=== PATIENT | male | born 1960 | race Caucasian/White ===

== ENCOUNTER 2017-06-06 02:51 | Day surgery (SDC) | payer BC ==
[2017-06-06] MEDS ORDERED: Ketorolac INJ* 30 MG/ML 1 ML VIAL IV ONE (03:04)
[2017-06-06] MEDS ORDERED: Ondansetron INJ* 2 MG/ML VIAL IV ONE (03:04)
[2017-06-06] MEDS ORDERED: Morphine INJ* 4 MG/ML 1 ML SYRINGE IV ONE ×2 (03:04→09:11)
[2017-06-06] MEDS ORDERED: NS 0.9% 1000 ML* 1,000 ML IV ONE (03:04)
[2017-06-06 03:35] LABS: Hematocrit 46 % (42-52); Hemoglobin 15.5 g/dl (14.0-18.0); Mean Corpuscular HGB Conc 34 g/dl (31-36); Mean Corpuscular Hemoglobin 29 pg (27-31); Mean Corpuscular Volume 85 fL (80-94); Mean Platelet Volume 9 um3 (7.4-10.4); Red Blood Count 5.44 10^6/ul (4.0-5.4); Red Cell Distribution Width 14 % (10.5-15)
[2017-06-06 03:44] LABS: Albumin 4.2 g/dL (3.2-5.2); Calcium 8.9 mg/dL (8.6-10.3); EGFR African American 100.1 (>60); EGFR Non-African American 77.9 (>60); Globulin 2.6 g/dL (2-4); Potassium 3.6 mmol/L (3.5-5.0); Total Bilirubin 0.9 mg/dL (0.2-1.0); Total Protein 6.8 g/dL (6.4-8.9)
[2017-06-06 04:36] LABS: Urine Bacteria Absent (Absent); Urine Bilirubin Negative (Negative); Urine Glucose Negative (Negative); Urine Nitrite Negative (Negative)
--- NOTE | 2017-06-06 06:55 | ED ---
Radames Horne Alfonso, scribed for Jose Christian on 06/06/17 at 0308 . Abdominal Pain/Male - HPI Summary HPI Summary: This patient is a 56 year old M presenting to [facility] accompanied by with a chief complaint of left flank pain since two days ago. The pain was intermittent and worse as of one hour. The pain radiates to his back. The patient rates the pain 8/10 in severity. Symptoms aggravated by nothing and alleviated by Percocet COLLATERAL CLERK. Patient denies fever, hematuria, testicular pain, testicular swelling, and rash. PMHx of HLD and kidney stones. - History of Current Complaint Chief Complaint: EDFlankPain Stated Complaint: LEFT FLANK PAIN Time Seen by Provider: 06/06/17 03:00 Hx Obtained From: Patient Onset/Duration: Sudden Onset, Lasting Days - 2, Worse Since - 1 hour Timing: Intermittent Severity Initially: Moderate Severity Currently: Moderate Pain Intensity: 8 Pain Scale Used: 0-10 Numeric Location: Flank - L Radiates: Yes Radiates to: Back Aggravating Factor(s): Nothing Alleviating Factor(s): Medications - Percocet Associated Signs And Symptoms: Positive: Negative - Allergies/Home Medications Allergies/Adverse Reactions: Allergies Allergy/AdvReac Type Severity Reaction Status Date / Time No Known Allergies Allergy Verified 06/06/17 02:57 PMH/Surg Hx/FS Hx/Imm Hx Cardiovascular History: Reports: Hx Hypercholesterolemia History: Reports: Hx Kidney Stones, Hx Renal Disease - KIDNEY STONES - Surgical History Surgery Procedure, Year, and Place: kidney stones x 3 stents - Immunization History Date of Tetanus Vaccine: unknown Infectious Disease History: No Infectious Disease History: Denies: Traveled Outside the [place] in Last 30 Days - Family History Known Family History: Positive: Diabetes - father - Social History Alcohol Use: Occasionally Hx Substance Use: No Substance Use Type: Reports: None Hx Tobacco Use: Yes Smoking Status (MU): Former Smoker Review of Systems Negative: Fever Positive: Abdominal Pain - Left flank pain. Positive: other - negative testicular pain, and testicular swelling. Negative: hematuria Negative: Rash All Other Systems Reviewed And Are Negative: Yes Physical Exam Triage Information Reviewed: Yes Vital Signs On Initial Exam: Initial Vitals Temp Pulse Resp BP Pulse Ox 97.5 F 76 18 145/109 96 06/06/17 02:53 06/06/17 02:53 06/06/17 02:53 06/06/17 02:53 06/06/17 02:53 Vital Signs Reviewed: Yes Appearance: Positive: Well-Appearing, No Pain Distress Skin: Positive: Warm, Skin Color Reflects Adequate Perfusion, Dry Head/Face: Positive: Normal Head/Face Inspection Eyes: Positive: EOMI, HAO ENT: Positive: Normal ENT inspection Neck: Positive: Supple, Nontender Respiratory/Lung Sounds: Positive: Clear to Auscultation, Breath Sounds Present Cardiovascular: Positive: RRR, Pulses are Symmetrical in both Upper and Lower Extremities Abdomen Description: Positive: Soft, Other: - LLQ tenderness Bowel Sounds: Positive: Present Musculoskeletal: Positive: Normal, Strength/ROM Intact Neurological: Positive: Normal, Sensory/Motor Intact, Alert, Oriented to Person Place, Time Diagnostics - Vital Signs Vital Signs Temp Pulse Resp BP Pulse Ox 06/06/17 02:55 97.5 F 76 18 145/109 96 06/06/17 02:53 97.5 F 76 18 145/109 96 - Laboratory Result Diagrams: 06/06/17 03:15 06/06/17 03:15 Lab Statement: Any lab studies that have been ordered have been reviewed, and results considered in the medical decision making process. - CT A/P CT Interpretation Completed By: Radiologist - Hydronephrosis with stone (2 x 1 x 0.6 cm) in the left renal pelvis Abdominal Pain Fem Course/Dx - Course Assessment/Plan: This patient is a 56 year old M presenting to [facility] accompanied by with a chief complaint of left flank pain since two days ago. The pain was intermittent and worse as of one hour. The pain radiates to his back. The patient rates the pain 8/10 in severity. Symptoms aggravated by nothing and alleviated by Percocet COLLATERAL CLERK. Patient denies fever, hematuria, testicular pain, testicular swelling, and rash. PMHx of HLD and kidney stones. CT A/P reveals hydronephrosis with stone in the left renal pelvis. Consulted Dr. Medina (urologist) who recommends an Ultrasound. Patient is signed out to Dr. Coley, pending disposition, awaiting US. - Diagnoses Provider Diagnoses: Renal calculi - Provider Notifications Discussed Care Of Patient With: Henok Medina Time Discussed With Above Provider: 04:16 Instructed by Provider To: Other - Consulted Dr. Medina (urologist) who recommends an US. Discharge - Discharge Plan Condition: Stable Disposition: OTHER Discharge Disposition Comment: Patient is signed out to Dr. Coley, pending disposition, awaiting US. Prescriptions: oxyCODONE/Acetamin 5/325 MG* [Percocet 5/325 TAB*] 1 tab PO Q8H PRN #15 tab MDD 3 PRN Reason: Pain The documentation as recorded by the Radames cook Alfonso accurately reflects the service I personally performed and the decisions made by , Jose Christian.
--- NOTE | 2017-06-06 07:54 | RAD ---
HISTORY: Kidney stone COMPARISONS: CT dated June 04, 2016 VIEWS: Frontal views of the abdomen. FINDINGS: BOWEL: There is a nonobstructive bowel gas pattern. There is a large amount of stool within the colon. CALCULI: The left renal calculi noted on the previous examination are not well-visualized on the current examination, though evaluation is limited by overlying bowel. BONES AND SOFT TISSUES: Degenerative changes are noted OTHER FINDINGS: The lung bases are clear. There is no subphrenic gas. IMPRESSION: THE NEPHROLITHIASIS NOTED ON CT IS NOT WELL VISUALIZED ON THE CURRENT EXAMINATION, THOUGH EVALUATION IS LIMITED BY OVERLYING BOWEL.
--- NOTE | 2017-06-06 08:08 | RAD ---
INDICATION: Left flank pain, renal colic. CT of the abdomen and pelvis was performed without oral or IV contrast administration. Coronal and sagittal reconstructed images were obtained. Lung bases demonstrate no pleural fluid, nodules or masses. Heart is of normal size without evidence of pericardial effusion. Liver is normal in size. It is diffusely decreased in density, consistent with hepatic steatosis. Areas of focal fatty sparing are likely present. The gallbladder demonstrates no calcified gallstones. No pericholecystic fluid or wall thickening is identified. Spleen is normal in size. The pancreas demonstrates no mass or pancreatic duct dilation. No adrenal lesions are noted. There is left hydronephrosis noted. There is a calculus in the left ureteropelvic junction measuring 16 mm. Other calcifications are noted in the lower pole of the left kidney. The right kidney demonstrates no hydronephrosis. Aorta and inferior vena cava are unremarkable. Small scattered retroperitoneal lymph nodes are noted. No dilated loops of bowel are noted. The colon is filled with stool. No hernias are noted. CT of the pelvis demonstrates urinary bladder to be grossly unremarkable. The prostate is prominent in size. The bladder is otherwise unremarkable. No hernias are noted. IMPRESSION: Left hydronephrosis. There is a large calculus in the left ureteropelvic junction. Perinephric infiltration of fat is noted surrounding the left kidney.
--- NOTE | 2017-06-06 08:54 | HP ---
CC: Dr. Kelley * STAT ADMITTING HISTORY AND PHYSICAL: DATE OF ADMISSION: 06/06/17 ADMITTING DIAGNOSES: 1. Left hydronephrosis. 2. Large calculus left renal pelvis. 3. Additional left renal calculi. PLANNED PROCEDURE: Left stent insertion (possibly to be followed in the near future by lithotripsy). SURGEON: Dr. Medina. HISTORY OF PRESENT ILLNESS: Aaron Beach is a 56-year-old gentleman with a history of recurrent renal calculi. He has had uric acid as well as calcium stones in the last several years - in 2004 he had uric acid stones, in 2009 he had calcium stones, in 2012 he had uric acid stones again. Most recently, his stone was composed of 80% uric acid and 20% calcium. He had now presented to the emergency room with left flank pain and nausea, and was noted to have a 2-cm calculus in the left renal pelvis with moderate left hydronephrosis and additional left renal calculi. I had prescribed medication in the form of Allopurinol and potassium citrate, but he stated that he had stopped taking those medications several months ago, which may explain the formation of the large calculus. PAST MEDICAL HISTORY: Significant for: 1. Recurrent renal calculi. 2. Gastroesophageal reflux. PAST SURGICAL HISTORY: MEDICATIONS ON ADMISSION: [id number] medication for heartburn. ALLERGIES: No known drug allergies. REVIEW OF SYSTEMS: He is otherwise in excellent health. There is no history of diabetes mellitus or any major systemic illness. He denies any chest pain or shortness of breath. PHYSICAL EXAMINATION GENERAL: Reveals a pleasant, healthy-appearing, middle-aged gentleman. VITAL SIGNS: Blood pressure is 130/80; pulse 84 per minute regular, oxygen saturation 86% on room air. LUNGS: Clear bilaterally. CARDIOVASCULAR: Regular rate and rhythm. S1, S2. ABDOMEN: Soft, with mild left flank tenderness. IMAGING STUDIES: I reviewed the CT scan which revealed a 2-cm calculus in the left renal pelvis with an additional left lower pole calculus and left hydronephrosis. I also reviewed the plain x-ray which did not reveal the large calculus, suggesting that this may be a uric acid calculus. IMPRESSION: I had a detailed discussion with Mr. Beach and the plan is to proceed with urgent left stent insertion followed by reinstitution of medication for alkalinizing the urine in an effort to dissolve the calculi, or possibly with lithotripsy depending on the post-operative x-ray findings. PLAN: Left stent insertion. [id number]/[facility] #: [id number] CORY
[2017-06-06] MEDS ORDERED: cefTRIAXone(*) 2 GM ADDV.VIAL IVPB ONE (09:01)
[2017-06-06] MEDS ORDERED: Iohexol 180 (CONTRAST) 10 ML SDV IV ONE (11:43)
[2017-06-06] MEDS ORDERED: Lidocaine 2% PF * 5 ML VIAL ONE (11:52)
[2017-06-06] MEDS ORDERED: fentaNYL* 50 MCG/ML 2 ML VIAL (100 MCG VIAL) ONE (11:52)
[2017-06-06] MEDS ORDERED: Propofol* 10 MG/ML 20 ML BTL IV PUSH ONE (11:52)
[2017-06-06] MEDS ORDERED: oxyCODONE/Acetamin 5/325 MG* TAB PO PRN ×2 (13:00→13:02)
--- NOTE | 2017-06-06 13:32 | RAD ---
INDICATION: Stent placement. COMPARISON: Correlation is made with a prior CT of the abdomen and pelvis obtained earlier today. TECHNIQUE: 9 seconds of intermittent fluoroscopic guidance were provided and 4 spot films of the abdomen were centered on the left side. FINDINGS: There is partial opacification of the left renal collecting system. Subsequently there is placement of a double-J ureteral stent catheter on the left side. IMPRESSION: INTRAOPERATIVE CONTROL FILMS. CPT II Codes: 6045F
[2017-06-06 13:33] VITALS: BP 130/91
--- NOTE | 2017-06-06 18:51 | ED ---
Bassem Horne Angela, scribed for Bipin Coley MD on 06/06/17 at 0806 . Progress - Progress Note Progress Note: This patient was signed out from Dr. Christian, pending disposition. Pt will be admitted by Dr. Medina for renal calculi. This patient is a 56 y/o male presenting to [facility] c/o left flank pain since two days ago. The pain radiates to his back. The patient rates the pain 8/10 in severity. Patient denies fever, hematuria, testicular pain, testicular swelling , and rash. PMHx of HLD and kidney stones. Course/Dx - Diagnoses Provider Diagnoses: Renal calculi - Provider Notifications Discussed Care Of Patient With: Henok Medina Time Discussed With Above Provider: 04:16 Instructed by Provider To: Other - Consulted Dr. Medina (urologist) who will admit the pt. The documentation as recorded by the Bassem cook Angela accurately reflects the service I personally performed and the decisions made by , Bipin Coley MD.
--- NOTE | 2017-06-07 02:55 | OP ---
DATE OF OPERATION: 06/06/17 - [facility] DATE OF : 64 SURGEON: Henok Medina MD ANESTHESIOLOGIST: Dr. Carballo. ANESTHESIA: General. PRE-OP DIAGNOSES: 1. Left hydronephrosis. 2. Large calculus, left renal pelvis. POST-OP DIAGNOSES: 1. Left hydronephrosis. 2. Large calculus, left renal pelvis. 3. Multiple small bladder calculi. OPERATIVE PROCEDURE: Cystoscopy, left retrograde pyelogram, left stent insertion, and removal of bladder calculi. COMPLICATIONS: None. STENT: A 6-Swedish stent, left ureter. INDICATIONS: Aaron Beach is a 56-year-old gentleman with a history of recurrent calculi who was evaluated for left flank pain secondary to a 2-cm calculus in the left renal pelvis. FINDINGS: 1. Mild to moderately enlarged prostate. 2. Multiple tiny bladder calculi. 3. Filling defect, left renal pelvis, consistent with radiolucent probable uric acid calculus. DESCRIPTION OF PROCEDURE: After induction of general anesthesia, the patient was placed in dorsal lithotomy position. Sequential compression devices were in place and functioning. Initial cystoscopy revealed a normal appearing urethra and mild to moderately enlarged prostate. The bladder was examined, there were multiple tiny bladder calculi noted. Using an Ellik evacuator, these were flushed out and removed. Next, a left retrograde pyelogram was carried out. A large filling defect was noted in the left renal pelvis consistent with uric acid calculus. A 6-Swedish stent was introduced and positioned under fluoroscopy with good proximal and distal positioning obtained. The bladder was emptied. The patient tolerated the procedure satisfactorily and was transferred back to the recovery area in stable condition. [id number]/[facility] #: [id number] MTDD
== END 2017-06-06 14:47 | disposition home or self-care (01) ==
LOC: ED 02:51 → OR 09:11
PROVIDERS: ATTEND Urology
DX: N13.2 Hydronephrosis with renal and ureteral calculous obstruction (principal); N21.0 Calculus in bladder; R10.32 Left lower quadrant pain; K21.9 Gastro-esophageal reflux disease without esophagitis
CPT/HCPCS: 36415; 74000; 74176; 74420; 80053; 81003; 81015; 83690; 84484; 85025; 85610; 85730; 96374; 96375; 99284; C1876; J0696; J1580; J1885; J2270; J2405; J2704; J3010

== ENCOUNTER 2017-08-03 13:57 | Emergency (ER) | payer BC ==
[2017-08-03 14:28] LABS: Hematocrit 50 % (42-52); Hemoglobin 17.1 g/dl (14.0-18.0); Mean Corpuscular HGB Conc 34 g/dl (31-36); Mean Corpuscular Hemoglobin 29 pg (27-31); Mean Corpuscular Volume 85 fL (80-94); Mean Platelet Volume 9 um3 (7.4-10.4); Red Blood Count 5.93 10^6/ul (4.0-5.4); Red Cell Distribution Width 14 % (10.5-15); White Blood Count 6.7 10^3/ul (3.5-10.8)
[2017-08-03 14:43] LABS: Albumin 4.7 g/dL (3.2-5.2); BUN/Creatinine Ratio 16.7 (8-20); Calcium 9.8 mg/dL (8.6-10.3); EGFR African American 113.1 (>60); EGFR Non-African American 87.9 (>60); Globulin 2.7 g/dL (2-4); Potassium 3.7 mmol/L (3.5-5.0); Total Bilirubin 1.3 mg/dL (0.2-1.0); Total Protein 7.4 g/dL (6.4-8.9)
--- NOTE | 2017-08-03 14:45 | RAD ---
INDICATION: Chest pain. COMPARISON: Comparison is made with a prior chest x-ray study from January 15, 2012. TECHNIQUE: Dual-energy PA and lateral views of the chest were obtained. FINDINGS: The heart is within normal limits in size. Mediastinal and hilar contours appear within normal limits. The lungs are clear. No pleural effusion or pneumothorax is seen. IMPRESSION: NO EVIDENCE FOR ACTIVE CARDIOPULMONARY DISEASE.
[2017-08-03] MEDS ORDERED: Ketorolac INJ* 30 MG/ML 1 ML VIAL IV PUSH ONE (14:55)
[2017-08-03] MEDS ORDERED: Dexamethasone IV* 4 MG/ML 1 ML (4 MG) IM ONE (14:56)
[2017-08-03 15:39] LABS: TSH (Thyroid Stimulating Horm) 1.2 mcIU/mL (0.34-5.60)
--- NOTE | 2017-08-03 16:03 | RAD ---
INDICATION: Left shoulder pain. TECHNIQUE: 4 views of the left shoulder were obtained. FINDINGS: The bones are in normal alignment. No fracture is seen. There is a large calcific deposit adjacent to the superior lateral aspect of the humeral head consistent with calcific tendinitis or bursitis. IMPRESSION: FINDINGS MOST CONSISTENT WITH CALCIFIC TENDINITIS OR BURSITIS.
--- NOTE | 2017-08-03 17:05 | ED ---
Miriam Horne Emily, scribed for Bipin Coley MD on 08/03/17 at 1416 . HPI Chest Pain - HPI Summary HPI Summary: This patient is a 56 year old M presenting to [facility] with a chief complaint of left sided left shoulder pain that radiates to the chest that began 2 weeks ago. The patient rates the pain 6/10 in severity. Symptoms aggravated by movement of LUE. Symptoms alleviated by nothing. Patient reports pain in L elbow. Patient denies nausea, vomiting, and dyspnea. Patient denies having similar shoulder pain previously. - History of Current Complaint Chief Complaint: EDChestPainROMI Time Seen by Provider: 08/03/17 14:07 Hx Obtained From: Patient Onset/Duration: Started Weeks Ago, Still Present Timing: Constant Initial Severity: Moderate Current Severity: Moderate Pain Intensity: 8 Pain Scale Used: 0-10 Numeric Aggravating Factor(s): Movement Alleviating Factor(s): Nothing Associated Signs and Symptoms: Positive: Chest Pain, Other: - Negative nausea, vomiting, and dyspnea - Allergy/Home Medications Allergies/Adverse Reactions: Allergies Allergy/AdvReac Type Severity Reaction Status Date / Time No Known Allergies Allergy Verified 06/06/17 02:57 PMH/Surg Hx/FS Hx/Imm Hx Previously Healthy: No Cardiovascular History: Reports: Hx Hypercholesterolemia History: Reports: Hx Kidney Stones - URIC ACID STONES, Hx Renal Disease - KIDNEY STONES - Surgical History Surgery Procedure, Year, and Place: kidney stones x 3 stents - Immunization History Date of Tetanus Vaccine: unknown Infectious Disease History: No Infectious Disease History: Denies: Traveled Outside the [place] in Last 30 Days - Family History Known Family History: Positive: Diabetes - father - Social History Occupation: Employed Full-time Lives: With Family Alcohol Use: Rare Hx Substance Use: No Substance Use Type: Reports: None Hx Tobacco Use: Yes Smoking Status (MU): Former Smoker Review of Systems Positive: Chest Pain Positive: Other - Negative dyspnea Negative: Vomiting, Nausea Positive: Other - Positive L shoulder pain and L elbow pain All Other Systems Reviewed And Are Negative: Yes Physical Exam - Summary Physical Exam Summary: VITAL SIGNS: Reviewed. GENERAL: ~Patient is a well-developed and nourished male who is lying comfortable in the stretcher. ~Patient is not in any acute respiratory distress. HEAD AND FACE: No signs of trauma. ~No ecchymosis, hematomas or skull depressions. No sinus tenderness. EYES: PERRLA, EOMI x 2, No injected conjunctiva, no nystagmus. EARS: Hearing grossly intact. Ear canals and tympanic membranes are within normal limits. MOUTH: Oropharynx within normal limits. NECK: Supple, trachea is midline, no adenopathy, no JVD, no carotid bruit, no c- spine tenderness, neck with full ROM. CHEST: Symmetric, no tenderness at palpation LUNGS: Clear to auscultation bilaterally. No wheezing or crackles. CVS: Regular rate and rhythm, S1 and S2 present, no murmurs or gallops appreciated. ABDOMEN: Soft, non-tender. No signs of distention. No rebound no guarding, and no masses palpated. Bowel sounds are normal. EXTREMITIES: FROM in all major joints, no edema, no cyanosis or clubbing. Decreased range of motion in abduction in L shoulder secondary to pain. Good pulses and capillary refill in L arm. Pain radiates up L arm. NEURO: Alert and oriented x 3. No acute neurological deficits. Speech is normal and follows commands. SKIN: Dry and warm Triage Information Reviewed: Yes Vital Signs On Initial Exam: Initial Vitals Temp Pulse Resp BP Pulse Ox 98.0 F 94 18 167/110 96 08/03/17 13:59 08/03/17 13:59 08/03/17 13:59 08/03/17 13:59 08/03/17 13:59 Vital Signs Reviewed: Yes - Seth Coma Scale Coma Scale Total: 15 Diagnostics - Vital Signs Vital Signs Temp Pulse Resp BP Pulse Ox 08/03/17 13:59 98.0 F 94 18 167/110 96 - Laboratory Lab Results: Lab Results 08/03/17 08/03/17 08/03/17 Range/Units 14:20 14:20 14:20 WBC 6.7 (3.5-10.8) 10^3/ul RBC 5.93 H (4.0-5.4) 10^6/ul Hgb 17.1 (14.0-18.0) g/dl Hct 50 (42-52) % MCV 85 (80-94) fL MCH 29 (27-31) pg MCHC 34 (31-36) g/dl RDW 14 (10.5-15) % Plt Count 223 (150-450) 10^3/ul MPV 9 (7.4-10.4) um3 Neut % (Auto) 54.3 (38-83) % Lymph % (Auto) 34.8 (25-47) % Burke % (Auto) 7.8 (1-9) % Eos % (Auto) 2.2 (0-6) % Baso % (Auto) 0.9 (0-2) % Absolute Neuts (auto) 3.7 (1.5-7.7) 10^3/ul Absolute Lymphs (auto) 2.3 (1.0-4.8) 10^3/ul Absolute Monos (auto) 0.5 (0-0.8) 10^3/ul Absolute Eos (auto) 0.1 (0-0.6) 10^3/ul Absolute Basos (auto) 0.1 (0-0.2) 10^3/ul Absolute Nucleated RBC 0.01 10^3/ul Nucleated RBC % 0.1 D-Dimer, Quantitative < 200 (Less Than 230) ng/mL Sodium 137 (133-145) mmol/L Potassium 3.7 (3.5-5.0) mmol/L Chloride 105 (101-111) mmol/L Carbon Dioxide 25 (22-32) mmol/L Anion Gap 7 (2-11) mmol/L BUN 15 (6-24) mg/dL Creatinine 0.90 (0.67-1.17) mg/dL Est GFR ( Amer) 113.1 (>60) Est GFR (Non-Af Amer) 87.9 (>60) BUN/Creatinine Ratio 16.7 (8-20) Glucose 128 H (70-100) mg/dL Calcium 9.8 (8.6-10.3) mg/dL Magnesium 2.0 (1.9-2.7) mg/dL Total Bilirubin 1.30 H (0.2-1.0) mg/dL AST 18 (13-39) U/L ALT 29 (7-52) U/L Alkaline Phosphatase 48 (34-104) U/L Total Creatine Kinase 55 (10-223) U/L CK-MB (CK-2) 1.1 (0.6-6.3) ng/mL Troponin I 0.00 (<0.04) ng/mL Total Protein 7.4 (6.4-8.9) g/dL Albumin 4.7 (3.2-5.2) g/dL Globulin 2.7 (2-4) g/dL Albumin/Globulin Ratio 1.7 (1-3) TSH 1.20 (0.34-5.60) mcIU/mL Result Diagrams: 08/03/17 14:20 08/03/17 14:20 Lab Statement: Any lab studies that have been ordered have been reviewed, and results considered in the medical decision making process. - Radiology CXR Radiology Interpretation Completed By: Radiologist - CXR reveals NO EVIDENCE FOR ACTIVE CARDIOPULMONARY DISEASE. ED physician has reviewed this radiology report and agrees. Shoulder Radiology Interpretation Completed By: Radiologist - Shoulder XR read by radiologist reveals findings most consistent with calcific tendinitis or bursitis. ED physician has reviewed this radiology report and agrees. - EKG 1405 Cardiac Rate: NL - 95 BPM EKG Rhythm: Sinus Rhythm EKG Interpretation: No ST elevation. T waves in 2, 3, and AVF Chest Pain Course/Dx - Course Assessment/Plan: This patient is a 56 year old M presenting to [facility] with a chief complaint of left sided left shoulder pain that radiates to the chest that began 2 weeks ago. The patient rates the pain 6/10 in severity. Symptoms aggravated by movement of LUE. Symptoms alleviated by nothing. Patient reports pain in L elbow. Patient denies nausea, vomiting, and dyspnea. Patient denies having similar shoulder pain previously. In the ED course an IV access was obtained. Patient was placed in a forensic structural engineer. Patient was started with IV fluids. He was given Toradol and decadron for the shoulder pain since I believe he has a rotator cuff injury vs bursitis. Labs without any significant abnormality except for. Troponin #1: 0.00. EKG shows a NSR w/o ST elevations. CXR impression IMPRESSION: NO EVIDENCE FOR ACTIVE CARDIOPULMONARY DISEASE. Left shoulder pain IMPRESSION: FINDINGS MOST CONSISTENT WITH CALCIFIC TENDINITIS OR BURSITIS. After medications patients symptoms have improved. I have low suspicion for ACS since patients symptoms have improved. I discussed all the findings and test results with the patient. Patient was instructed to return to the emergency room immediately if any of the symptoms return or worsens. Plan of care was discussed with the patient and understands and agrees. All questions were answered at patient satisfaction. There were no further complaints or concerns. Lung exam before discharge: CTA B/L. Good air exchange. No wheezing or crackles heard. CVS: S1 and S2 present. No murmurs appreciated. Patient is alert and oriented x 3. Patient is hemodynamically stable. Patient will be discharged home with follow up PCP in the next 2-3 days - Chest Pain Differential Diagnosis/HQI/PQRI: Acute VA, ACS, Angina, CHF, Chest Wall, GI Disease, Lower Respiratory Infection, Other: - Shoulder pain, bursitis - Diagnoses Provider Diagnoses: Bursitis, Calcific tendonitis of left shoulder Discharge - Discharge Plan Condition: Stable Disposition: HOME Prescriptions: Methylprednisolone [Medrol Dosepak 4 MG*] 0 mg PO .SEE MACK INSTRUCTION #1 mack Naproxen TAB* [Naprosyn 250 mg TAB*] 500 mg PO Q8H PRN #30 tab PRN Reason: Pain Patient Education Materials: Methylprednisolone (By mouth), Naproxen (By mouth) , Tendinitis (ED), Shoulder Bursitis (ED) Referrals: [facility] [Provider Group] Additional Instructions: RETURN TO THE EMERGENCY DEPARTMENT FOR CHANGING OR WORSENING SYMPTOMS. The documentation as recorded by the Miriam cook Emily accurately reflects the service I personally performed and the decisions made by , Bipin Coley MD.
[2017-08-03 17:27] VITALS: BP 149/96
== END 2017-08-03 17:27 | disposition home or self-care (01) ==
LOC: ED 13:57
DX: M75.52 Bursitis of left shoulder (principal); M75.32 Calcific tendinitis of left shoulder; E78.00 Pure hypercholesterolemia, unspecified; Z87.442 Personal history of urinary calculi; Z87.891 Personal history of nicotine dependence
CPT/HCPCS: 36415; 71020; 80053; 82550; 82553; 83735; 84443; 84484; 85025; 85379; 93005; 96372; 96374; 99283; J1100; J1885

== ENCOUNTER → 2018-06-29 | Day surgery (SDC) | payer BC ==
--- NOTE | 2018-06-26 09:15 | HP ---
CC: Dr. Kelley; Henok Medina MD * ADMITTING HISTORY AND PHYSICAL: DATE OF ADMISSION: 06/29/18 ADMITTING DIAGNOSIS: Left renal calculi. PLANNED PROCEDURE: Shockwave lithotripsy of left renal calculi. HISTORY OF PRESENT ILLNESS: Rolando Beach is a 57-year-old gentleman with a history of recurrent multiple calculi. He has had both uric acid as well as calcium stones and recently was noted to have multiple left renal calculi and is now being brought in for treatment of the same. PAST MEDICAL HISTORY: Significant for: 1. Recurrent renal calculi. 2. Hypertension. MEDICATIONS: On admission: 1. Potassium citrate 20 mEq 3 times a day. 2. Allopurinol 300 mg once a day. 3. Lisinopril 10 mg a day. ALLERGIES: No known drug allergies. REVIEW OF SYSTEMS: He is otherwise in excellent health. There is no history of diabetes mellitus or any other major systemic illness. PHYSICAL EXAMINATION GENERAL: Reveals a pleasant middle-aged gentleman. VITAL SIGNS: Blood pressure is 126/70, pulse 82 per minute, oxygen saturation 98% on room air. LUNGS: Clear bilaterally. CARDIOVASCULAR: Regular rate and rhythm. S1, S2. ABDOMEN: Soft with mild left flank tenderness. IMPRESSION: A 57-year-old gentleman with multiple left renal calculi. PLAN: Planned procedure is shockwave lithotripsy of left renal calculi. I have discussed the procedure and possible risks including bleeding, infection, incomplete fragmentation, and obstructing fragments in detail with Rolando. [id number]/[facility] #: [id number] MTDD
[~2018-06-29] MED LIST: Buffered Lidocaine 0.9% SYRIN* 5 ML/SYR SYRINGE INTRADERM ONE; Dexamethasone IV* 4 MG/ML 1 ML (4 MG) ONE; Famotidine IV* 10 MG/ML 2 ML (20 mg) IV ONE; Famotidine IV* 10 MG/ML 2 ML (20 mg) ONE; Furosemide IV* 10 MG/ML 2 ML VIAL (20 MG) ONE; KETAMINE HCL* 50 MG/ML 10 ML VIAL ONE; Ketorolac INJ* 30 MG/ML 1 ML VIAL ONE; Lidocaine 2% PF * 5 ML VIAL ONE; Midazolam* 1 MG/ML 5 ML VIAL (5 MG) ONE; Naloxone* 0.4 MG/ML 1 ML VIAL IV PRN; Ondansetron INJ* 2 MG/ML VIAL IV PRN; Ondansetron INJ* 2 MG/ML VIAL ONE; Propofol* 10 MG/ML 20 ML BTL IV PUSH ONE; cefTRIAXone(*) 2 GM ADDV.VIAL IVPB ONE; fentaNYL* 50 MCG/ML 2 ML VIAL (100 MCG VIAL) IV PRN; fentaNYL* 50 MCG/ML 2 ML VIAL (100 MCG VIAL) ONE
--- NOTE | 2018-06-29 08:00 | RAD ---
Indication: LEFT shock wave lithotripsy. Comparison: June 12, 2018 Technique: Supine view of the abdomen. Report: No significant change to LEFT renal calculi with the largest measuring 1.3 cm. No suspicious calcifications along the course of the ureters. Pelvic phleboliths noted. Unremarkable bowel gas pattern and soft tissue contours. IMPRESSION: #. Unchanged LEFT nephrolithiasis.
--- NOTE | 2018-06-29 09:54 | OP ---
CC: Dr. Kelley * DATE OF OPERATION: 06/29/18 - [facility] DATE OF : 64 SURGEON: Henok Medina MD. ANESTHESIOLOGIST: Dr. Morales. ANESTHESIA: General. PRE-OP DIAGNOSIS: Left renal calculi. POST-OP DIAGNOSIS: Left renal calculi. OPERATIVE PROCEDURE: Shockwave lithotripsy of left renal calculi. COMPLICATIONS: None. POSTOPERATIVE CONDITION: Stable. INDICATIONS: Aaron Beach is a 57-year-old gentleman with a history of recurrent renal calculi. He was recently seen in followup and noted to have an approximately 10 to 11 mm calculus in the area of the right renal pelvis without any obstruction. In addition, he has a smaller calculus in the lower pole of the left kidney. DESCRIPTION OF PROCEDURE: After induction of general anesthesia, the patient was placed on lithotripsy table in supine position. The calculus, which was fairly faint, was visualized using fluoroscopy. Shockwave lithotripsy was commenced at a rate of 60 shocks per minute. After the initial 300 shocks, there was a brief pause in lithotripsy to minimize any potential trauma to the kidney. Lithotripsy was then resumed and a total of 1400 shocks were distributed between the 2 calculi. The patient tolerated the procedure satisfactorily and was transferred back to the recovery area in stable condition. [id number]/[facility] #: [id number] MTDD
[2018-06-29 11:09] VITALS: BP 142/95
== END | disposition home or self-care (01) ==
LOC: OR 07:14
PROVIDERS: ATTEND Urology
DX: N20.0 Calculus of kidney (principal); Z87.442 Personal history of urinary calculi; I10 Essential (primary) hypertension; Z87.891 Personal history of nicotine dependence
CPT/HCPCS: 74018; J0696; J1100; J1885; J1940; J2250; J2405; J2704; J3010